=== PATIENT | male | born 1950 | race Caucasian/White ===

== ENCOUNTER → 2018-08-09 | Outpatient (CLI) | payer OTHER, MEDICARE ==
[~2018-08-09] VITALS: Ht 177.8 cm; Wt 96.6 kg
[~2018-08-09] MED LIST: CYCLOBENZAPRINE10 MG PO; FLEXERIL PO; HYDROCODONE-AP1 EAC6 PO; IBUPROFEN 200200 M1 PO; IBUPROFEN 800800 M1 PO; LIORESAL 10 MG10 MG PO; LISINOPRIL10 MG PO; NABUMETONE 500500 M1 PO; NORVASC2.5 MG PO; PRILOSEC 10MG C10 M1 PO; XANAX 0.5 MG0.5 M1 PO; ZANAFLEX4 MG PO
--- NOTE | ~2018-08-09 | HPC ---
[facility] [address] [place] [address] PAIN MANAGEMENT CONSULTATION Name: ISAURA HEREDIA Wilder Room #: REG CL Rashid#: [id number] Admission: 08/09/18 ������������������ Attend Phys: Bernard Bhatia DO Discharge: ������������������ Date of : 54 Report #: [id number] THIS REPORT FOR: //name// CC: Bernard Santiago DO DATE OF SERVICE: 08/09/2018 REFERRING PHYSICIAN: Fernie Santiago DO. CHIEF COMPLAINT: Thoracic pain. HISTORY OF PRESENT ILLNESS: As you know, the patient is a very pleasant 68-year-old male who has been referred to our service by his primary care physician, Dr. Fernie Santiago for evaluation for thoracic pain. The patient indicates his pain began on 07/20/2018. He denies any specific injury or trauma that may have led to symptom occurrence. He states he has pain located parascapularly on the left as well as paraspinal muscular on the left just adjacent to the thoracic spine. He indicates that conservative treatment such as stretching exercises, direct pressure, acupuncture and chiropractic manipulation has been ineffective at treating symptoms. He sought evaluation through his PCP who trialled conservative medication management without efficacy. He was subsequently then referred to our clinic for concerns of ongoing pain issues. The patient indicates today pain is constant and rhythmic. He describes the pain as gnawing, throbbing and tender, places current pain score 7-8/10, daily average of 6-8/10, worst pain has been 9/10. The patient states pain is exacerbated with being active, improves with low activity, ibuprofen at 800 mg 3 times a day and Biofreeze to that spot. The patient has been referred to our service to discuss treatment options for this upper thoracic and mid thoracic pain. PAST MEDICAL HISTORY: 1. Hypertension. 2. Hepatitis. 3. Cholecystitis. 4. Chronic colon problems. 5. Gastroesophageal reflux disease. 6. Emotional problems. 7. Degenerative joint disease. 8. Osteoarthritis. PAST SURGICAL HISTORY: 1. Cholecystectomy. [facility] [address] [place] [address] PAIN MANAGEMENT CONSULTATION Name: ISAURA HEREDIA Room #: REG [facility] Sunny.#: [id number] Admission: 08/09/18 ������������������ Attend Phys: Bernard Bhatia DO Discharge: ������������������ Date of : 54 Report #: [id number] 2. Rotator cuff repair. 3. Open reduction and internal fixation of her right hand. 4. Left total knee arthroplasty. SOCIAL HISTORY: The patient denies tobacco, alcohol, IV or illicit drug use. He is retired, retired about a year ago, not receiving workmen's compensation nor is he trying to obtain disability benefits. Not in litigation in regards to pain. REVIEW OF SYSTEMS: Positive for fever, night sweats, fatigue and weakness, frequent and recurrent headaches, hearing loss with tinnitus, abdominal pain, nocturia, incontinence, dribbling to urine, sexual difficulty, frequent headaches, lightheadedness, dizziness, numbness and tingling sensations, nervousness, upper back pain. All other review of systems negative per 12-point review of systems other than those listed in history of present illness. Pain impact score 47/70 indicating severe interference of daily activities secondary to pain. ALLERGIES: NIFEDIPINE. CURRENT MEDICATIONS: Tizanidine 4 mg q. 8 hours p.r.n. muscle spasms, Norvasc 2.5 mg once a day, Xanax 0.5 mg b.i.d., ibuprofen 800 mg t.i.d., lisinopril 20 mg b.i.d., multivitamin 1 tab per day, probiotic 1 tab per day, vitamin D 2000 units once a day. IMAGING: There is no new imaging available. PQRS: The patient has mild arthritic changes of the cervical and lumbar spine, noted arthritis of the bilateral knees requiring total knee arthroplasty. No rheumatoid arthritis. Pain intensity 7-8/10. He is not a fall risk, has not had a fall in the last 3 months. He is not on blood thinners. He is treated for hypertension. He is not on any chronic opioids. He has a low opiate addiction potential. Pain impact score 47/70, severe interference of daily activities secondary to pain. PHYSICAL EXAMINATION: VITAL SIGNS: Blood pressure 140/88, pulse 78, respiratory rate 16 and unlabored. The patient is 100% on room air. Height 5 feet 10 inches tall, weight 213 pounds, BMI calculated 30.6. GENERAL: Well-developed, well-nourished, well-hydrated 68-year-old male appearing stated age, pain is rated around 7-8/10. HEENT: Normocephalic, atraumatic. Pupils equal, round, reactive to light. Extraocular muscles are intact. Sclerae nonicteric without injection. NEUROLOGIC: Cranial nerves 2-12 grossly intact. Speech is fluent. The patient deemed a good historian. [facility] [address] [place] [address] PAIN MANAGEMENT CONSULTATION Name: GIOVANNA,ISAURA D [facility] #: [facility] [id number] Admission: 08/09/18 ������������������ Attend Phys: Bernard Bhatia DO Discharge: ������������������ Date of : 54 Report #: [id number] LUNGS: Clear. No wheeze, rhonchi or rales. The pain does not change with deep inhalation or exhalation. CARDIOVASCULAR: Regular. No appreciable gallop, no rub. ABDOMEN: Soft, nontender, nondistended, normoactive bowel sounds. EXTREMITIES: Show no clubbing, no cyanosis, and no edema. MUSCULOSKELETAL: The patient has palpatory tenderness over the paraspinal musculature of the upper thoracic and rhomboid area. Deep palpation of the area causes intensification of pain. We were able to elicit 7 different trigger points in this area that caused the patient's typical radiating pain pattern. There were also multiple tender points without radiation. Cervical provocation testing is not met with any increase in overall pain. Spurling's test is equivocal. Upper extremity strength is symmetrical. He is intact to light touch from C5-T1 dermatomes, again from T1-T12 dermatomes and again from L1 through S2 dermatomes. Deep tendon reflexes are symmetrical at biceps, brachialis and triceps 2+/4. ASSESSMENT: 1. Myofascial pain. 2. Thoracic pain. PLAN: 1. Based on today's physical exam and history the patient has provided, the description the patient uses in regards to pain as well as the discrete location of symptoms and the lack of any type of provocating factors other than activity, the likely source of the patient's pain is myofascial in origin. He has 7 specific trigger points within the rhomboids in the left and the paraspinal musculature of the upper thoracic on the left area. Multiple tender points were also noted. We discussed with the patient treatment options for myofascial pain today. The following was discussed with the patient. We discussed physical therapy, stretching exercises, possible traction techniques as well as direct acupressure and possibly acupuncture techniques. We discussed medication management with adjustments in his muscle relaxants and the possible addition of a nonsteroidal anti-inflammatory. We discussed trigger point injections to address the area directly and the 7 different trigger points identified. We also discussed further imaging that might be necessary to address the area. After reviewing all the risks and benefits of the proposed treatment options, the patient chose to begin with trigger point injections. 2. The patient was advised risks and benefits of trigger point injections. These risks include but are not necessarily limited to bleeding, bruising, infection, worsening pain, no relief of pain, also risk of temporary or permanent muscle weakness, temporary or permanent nerve damage, possible pneumothorax and . The patient states understood and wished to proceed. 3. No medication changes made at today's visit. [place] [address] PAIN MANAGEMENT CONSULTATION Name: ISAURA HEREDIA Room #: REG [facility] Mike#: [id number] Admission: 08/09/18 ������������������ Attend Phys: Bernard Bhatia DO Discharge: ������������������ Date of : 54 Report #: [id number] on his current medication management with plans to make adjustments if necessary. We did offer a change in his muscle relaxant, but at this time, he wishes no further alteration in treatment. 4. We will see the patient back in followup visit on an as needed basis for possible next in the series of trigger point injections or to further evaluate for other intervention, treatment options or medication change options. 5. We wish to thank Dr. Santiago for the referral of the patient to our clinic. We will keep you apprised of his response to treatment as we address what appears to be myofascial pain in the thoracic area. Again, we wish to thank you for the opportunity to see this patient in consultation. PROCEDURE NOTE DESCRIPTION OF PROCEDURE: Trigger point injections. After obtaining written consent, the patient was placed in a seated position. By palpating using a single finger, 7 trigger points were identified that reproduced the patient's typical radiating pain pattern. Trigger points were located in the paraspinal musculature of the upper thoracic spine on the left as well as rhomboids on the left. There is also involvement of the infrascapular musculature. Each of the target sites of injections were then cleansed using aseptic technique. A 27-gauge 1-1/4-inch needle was advanced towards each trigger points until the patient's typical radiating pain pattern was reproduced. After negative aspiration for heme, 1 mL of a solution containing 1 mL 40 mg per mL, 40 mg total triamcinolone and 6 mL of bupivacaine 0.5% injected in a fanned out distribution at each trigger point, for a total volume of 7 mL being given. Sterile bandages were then placed over each injection site. The patient tolerated procedure well, carefully escorted to recovery room in stable condition. No apparent complications. VAS before procedure rated at 7-8/10. VAS following procedure 0/10. ��������������������������������������������� ���������������������������������������� By: ��������������������������������������������� [id number] Bernard Bhatia, /nt
[2018-08-09 14:30] VITALS: BP 140/88
--- NOTE | 2018-08-09 14:50 | NUR ---
Pain Clinic Assessment: 1. History of Osteoarthritis: Not Applicable History of Rheumatoid Arthritis: Not Applicable 2. Height: 5 ft. 10 in. 177.8 cm. Weight: 213.0 lb. oz. 96.616 kg. Patient's BMI: 30.6 3. Vital Signs: BP: 140/88 Pulse: 78 Resp: 16 Temp: 02 Sat: 100 ECG Mon: 4. Pain Intensity: 7-8 5. Fall Risk: Dizziness: N Needs help standing or walking: N Fallen in the last 3 months: N Fall risk comments: 6. Patient on Blood Thinner: None 7. History of Hypertension: Y 8. Opioid Therapy greater than 6 weeks: N Opiate Contract Signed: 9. Risk Assessment Tool Provided: LOW-0 10. Functional Assessment Tool: 11. Recreational Drug Use: Never Drug Type: Tobacco Use: Never Smoker Tobacco Type: Amount or Packs/day: How Many Years: Alcohol Use: No Frequency: Quant:
== END | disposition home or self-care (01) ==
LOC: PAIN 06:52
DX: M79.18 Myalgia, other site (principal); M54.6 Pain in thoracic spine; M17.0 Bilateral primary osteoarthritis of knee; I10 Essential (primary) hypertension; K21.9 Gastro-esophageal reflux disease without esophagitis; M19.90 Unspecified osteoarthritis, unspecified site; K63.9 Disease of intestine, unspecified; Z79.899 Other long term (current) drug therapy; Z90.49 Acquired absence of other specified parts of digestive tract; Z98.890 Other specified postprocedural states; Z96.652 Presence of left artificial knee joint; Z88.8 Allergy status to other drugs, medicaments and biological substances